=== PATIENT | female | born 1995 | race Hispanic/Latino ===

== ENCOUNTER 2018-02-21 22:50 | Emergency (ER) | payer OTHER ==
[2018-02-21] MEDS ORDERED: ONDANSETRON ODT 4 MG TAB ONE (23:44)
[2018-02-21] MEDS ORDERED: IBUPROFEN 400 MG TABLET ONE (23:44)
[2018-02-22] LABS: APPEARANCE,URINE Cloudy (CLEAR); BILIRUBIN,URINE Negative (NEGATIVE); COLOR,URINE Yellow (YELLOW); GLUCOSE, URINE (UA) Negative (NEGATIVE); KETONES,URINE Negative (NEGATIVE); LEUKOCYTE ESTERASE ,URINE Small (NEGATIVE); NITRATE,URINE Negative (NEGATIVE); OCCULT BLOOD,URINE Small (NEGATIVE); PROTEIN,URINE Negative (NEGATIVE)
[2018-02-22 00:01] LABS: HCG,QUAL RESULT NEGATIVE (NEGATIVE)
[2018-02-22 00:11] LABS: BACTERIA,URINE Few /HPF (None Seen); RBC,URINE 0-1 /HPF (0-1)
[2018-02-22 00:12] LABS: CALCIUM OXALATE CRYSTALS,UR Moderate /LPF (None Seen); MUCUS,URINE Few LPF (None Seen)
== END 2018-02-22 00:13 | disposition home or self-care (01) ==
LOC: EDH 22:50
DX: R30.0 Dysuria (principal)
CPT/HCPCS: 81001; 81025

== ENCOUNTER 2018-05-23 16:53 | Emergency (ER) | payer SELFPAY | END 2018-05-23 17:41 | disposition home or self-care (01) | LOC: EDH 16:53 | DX: H66.91 Otitis media, unspecified, right ear (principal) ==

== ENCOUNTER 2019-06-28 02:47 | Emergency (ER) | payer OTHER ==
[2019-06-28] MEDS ORDERED: MORPHINE SULFATE 4 MG/1ML SYG ONE (03:37)
[2019-06-28] MEDS ORDERED: ONDANSETRON HCL 4 MG/2 ML VIAL ONE (03:37)
[2019-06-28] MEDS ORDERED: SODIUM CHLORIDE 0.9% 1000ML 1,000 ML IV ONE (03:38)
[2019-06-28 03:43] LABS: BASOPHILS % (AUTO) 0.6 % (0.0-5.0); EOSINOPHILS % (AUTO) 3.4 % (0.0-8.0); HEMATOCRIT 35.6 % (36-48); LYMPHOCYTES % (AUTO) 27.4 % (21.0-51.0); MEAN CORPUSCULAR HGB CONC 32.9 g/dL (32.0-36.0); MEAN CORPUSCULAR VOLUME 85.2 fL (79-99); MONOCYTES % (AUTO) 8.9 % (3.0-13.0); NEUTROPHILS % (AUTO) 59.4 % (40.0-77.0); PLATELET COUNT (AUTO) 350 K/uL (130-400); RED BLOOD CELL COUNT(AUTO) 4.18 MIL/uL (4.00-5.50); RED CELL DISTRIBUTION WIDTH 13.2 % (11.0-15.5); WHITE BLOOD COUNT (AUTO) 9.4 K/uL (4.8-10.8)
[2019-06-28 03:45] LABS: APPEARANCE,URINE Clear (CLEAR); BILIRUBIN,URINE Negative (NEGATIVE); COLOR,URINE Yellow (YELLOW); GLUCOSE, URINE (UA) Negative (NEGATIVE); KETONES,URINE Negative (NEGATIVE); LEUKOCYTE ESTERASE ,URINE Trace (NEGATIVE); NITRATE,URINE Negative (NEGATIVE); OCCULT BLOOD,URINE Moderate (NEGATIVE); PROTEIN,URINE Negative (NEGATIVE); UROBILINOGEN,URINE 0.2 mg/dL (0.2-1.0)
[2019-06-28 03:50] LABS: HCG,QUAL RESULT NEGATIVE (NEGATIVE)
[2019-06-28 03:53] LABS: CREATININE 0.7 mg/dL (0.5-1.5); POTASSIUM 3.7 mmol/L (3.5-5.1)
[2019-06-28 03:57] LABS: ALBUMIN 3.6 g/dL (3.5-5.0); BILIRUBIN,TOTAL 0.2 mg/dL (0.2-1.0); TOTAL PROTEIN, SERUM 7.9 g/dL (6.0-8.3)
[2019-06-28 04:00] LABS: BACTERIA,URINE Few /HPF (None Seen); SQUAMOUS EPITHELIAL CELL,UR Rare /HPF (0-2); YEAST,URINE BUDDING Few /HPF (None Seen)
== END 2019-06-28 04:45 | disposition home or self-care (01) ==
LOC: EDH 02:47
DX: K80.80 Other cholelithiasis without obstruction (principal)
CPT/HCPCS: 36415; 76705; 80053; 81001; 81025; 82550; 83690; 84484; 85025; 93005; 99285; J2270; J2405; J7030

== ENCOUNTER 2019-08-22 00:10 | Emergency (ER) | payer OTHER ==
[2019-08-22 01:06] LABS: BASOPHILS % (AUTO) 0.5 % (0.0-5.0); EOSINOPHILS % (AUTO) 3.9 % (0.0-8.0); HEMATOCRIT 39.9 % (36-48); LYMPHOCYTES % (AUTO) 30.5 % (21.0-51.0); MEAN CORPUSCULAR HEMOGLOBIN 27.5 pg (27.0-33.0); MEAN CORPUSCULAR HGB CONC 32.1 g/dL (32.0-36.0); MEAN CORPUSCULAR VOLUME 85.6 fL (79-99); MONOCYTES % (AUTO) 7.5 % (3.0-13.0); NEUTROPHILS % (AUTO) 57.4 % (40.0-77.0); PLATELET COUNT (AUTO) 385 K/uL (130-400); RED BLOOD CELL COUNT(AUTO) 4.66 MIL/uL (4.00-5.50); RED CELL DISTRIBUTION WIDTH 13.3 % (11.0-15.5); WHITE BLOOD COUNT (AUTO) 11.7 K/uL (4.8-10.8)
[2019-08-22 01:08] LABS: APPEARANCE,URINE Turbid (CLEAR); BILIRUBIN,URINE Negative (NEGATIVE); COLOR,URINE Yellow (YELLOW); GLUCOSE, URINE (UA) Negative (NEGATIVE); KETONES,URINE Negative (NEGATIVE); LEUKOCYTE ESTERASE ,URINE Large (NEGATIVE); NITRATE,URINE Negative (NEGATIVE); OCCULT BLOOD,URINE Moderate (NEGATIVE); PROTEIN,URINE Trace mg/dL (NEGATIVE); UROBILINOGEN,URINE 0.2 mg/dL (0.2-1.0)
[2019-08-22 01:27] LABS: ALBUMIN 4.2 g/dL (3.5-5.0); BILIRUBIN,TOTAL 0.2 mg/dL (0.2-1.0); CREATININE 0.7 mg/dL (0.5-1.5); HCG,QUAL RESULT NEGATIVE (NEGATIVE); POTASSIUM 3.4 mmol/L (3.5-5.1); TOTAL PROTEIN, SERUM 8.9 g/dL (6.0-8.3)
[2019-08-22 01:56] LABS: BACTERIA,URINE Moderate /HPF (None Seen); SQUAMOUS EPITHELIAL CELL,UR Rare /HPF (0-2); WBC,URINE 26-50 /HPF (0-1)
[2019-08-22] MEDS ORDERED: CEPHALEXIN 500 MG CAPSULE ONE (02:13)
== END 2019-08-22 02:17 | disposition home or self-care (01) ==
LOC: EDH 00:10
DX: K80.20 Calculus of gallbladder without cholecystitis without obstruction (principal)
CPT/HCPCS: 36415; 80053; 81001; 81025; 83690; 84484; 85025; 93005

== ENCOUNTER → 2020-10-07 | Emergency (ER) | payer OTHER | LOC: EDH 19:09 | DX: M79.10 Myalgia, unspecified site (principal); Z53.21 Procedure and treatment not carried out due to patient leaving prior to being seen by health care provider ==

== ENCOUNTER 2024-05-05 16:01 | Emergency (ER) | payer SELFPAY ==
[~2024-05-05] VITALS: Ht 152.4 cm; Wt 81.6 kg
--- NOTE | 2024-05-05 17:04 | ERN ---
ED Note History of Present Illness Stated Complaint: VAGINAL DISCOMFORT Chief Complaint: Other Problems Time Seen by MD: 16:50 Dictation: PATIENT STATES SHE WAS SHAVING HER PERINEAL AREA LAST WEEK WHEN SHE NICKED HER SKIN. SHE SAID IT HURT AND IT FELT LIKE SHE WAS BURNING. SHE SAID SHE DID NOT GO SEE YOUR PRIMARY CARE DOCTOR IN TODAY IT FEELS WORSE NO FEVER NO CHILLS. SHE HAS NOT TAKEN ANYTHING PRIOR TO ARRIVAL FOR PAIN AND GOES TO [facility] Allergies: Coded Allergies: No Known Drug Allergies (Unverified Allergy, Unknown, 10/26/18) Past Medical History Past Medical History: No Pertinent History Surgical History: None History: Not Applicable RN Note Reviewed/Agreed w/PFSH: Yes Review of System Dictation CONSTITUTIONAL: NEGATIVE EXCEPT FOR HPI HEAD/FACE: NEGATIVE EXCEPT FOR HPI EENT: NEGATIVE EXCEPT FOR HPI RESPIRATORY: NEGATIVE EXCEPT FOR HPI GASTROINTESTINAL/ABDOMINAL: NEGATIVE EXCEPT FOR HPI GENITOURINARY: NEGATIVE EXCEPT FOR HPI MUSCULOSKELETAL: NEGATIVE EXCEPT FOR HPI INTEGUMENTARY: NEGATIVE EXCEPT FOR HPI SHAVING RASH PERINEAL NEUROLOGICAL/PSYCH: NEGATIVE EXCEPT FOR HPI HEMATOLOGIC/LYMPHATIC: NEGATIVE EXCEPT FOR HPI ALL SYSTEMS NEGATIVE, EXCEPT NOTED ABOVE. 13 POINT REVIEW OF SYSTEMS ASSESSED AND ALL NEGATIVE EXCEPT FOR ABOVE. Initial Vital Sign VS Vital Signs Date Time Temp Pulse Resp B/P (MAP) Pulse Ox O2 Delivery O2 Flow Rate FiO2 05/05/24 16:50 98.6 75 18 138/76 98 Physical Exam Dictation VITAL SIGNS REVIEWED DG EUGENE IN ROOM WITH THE EXAM GENERAL APPEARANCE: ALERT, ORIENTED X 3, MILD ACUTE DISTRESS, WELL DEVELOPED, NOURISHED. HEAD AND FACE: NON-TRAUMATIC. EYES: PERRL, PINK CONJUNCTIVAS, EYELID NO TRAUMA, ANTERIOR CHAMBER WITH ARCUS SENILIS. EARS: PINNAS INTACT AND NO SIGNS OF TRAUMA OR ERYTHEMA EAR CANALS CLEAR AND NO DISCHARGE TM NO ERYTHEMA NOSE: NO DISCHARGE, NO BLEEDING. OROPHARYNX: MOUTH NORMAL, TONGUE PINK, PHARYNX CLEAR,NO ERYTHEMA, TONSILS NO EXUDATES, NO ABSCESSES NOTED, MUCOUS MEMBRANE MOIST NECK: SUPPLE, NON-TENDER, NO THYROMEGALY, NO MASSES, NO JVD, NO BRUITS BREAST:DEFERRED CHEST:NO TENDERNESS, NO CREPITUS, NO PARADOXICAL MOVEMENT, NO RETRACTIONS LUNGS:CLEAR, WELL-VENTILATED, SYMMETRIC, NO RALES, NO WHEEZING, NO RHONCHI, NO STRIDOR, GOOD BREATH SOUNDS BILATERALLY HEART: REGULAR RATE, REGULAR RHYTHM, NO MURMUR, NO GALLOPS VASCULAR: NO PERIPHERAL EDEMA, ABDOMEN: SOFT, POSITIVE BOWEL SOUNDS, NONDISTENDED, NO GUARDING, NONTENDER, NO REBOUND, NO MASSES NO HEPATOMEGALY, NO SPLENOMEGALY, NO GUSTAFSON'S SIGN, NO HERNIAS. RECTAL: DEFERRED GENITAL PATIENT HAS SMALL FLAT MACULAR LESIONS TO HER INNER LABIA BILATERALLY NONTENDER TO PALPATION WHITE DISCHARGE. NEUROLOGICAL: NORMAL SPEECH, MOTOR FUNCTION INTACT, SENSORY FUNCTION INTACT MUSCULOSKELETAL: NECK NONTENDER, FULL RANGE OF MOTION, BACK NONTENDER, FULL RANGE OF MOTION, EXTREMITIES: NONTENDER, FULL RANGE OF MOTION SKIN: COLOR PINK, DRY, NO TURGOR, NO RASH, NO LACERATIONS, NO ABRASIONS, NO CONTUSIONS. LYMPHATIC: DEFERRED Results (Laboratory/Radiology) Labs Reviewed?: Yes ED Course ED Course Orders Procedure Category Date Status Time Herpes Simplex Virus LAB 05/05/24 Verified I/Ii-Pcr 18:56 Vital Signs Date Time Temp Pulse Resp B/P (MAP) Pulse Ox O2 Delivery O2 Flow Rate FiO2 05/05/24 16:50 98.6 75 18 138/76 98 ONE [place]OUS[place]INE [place]UNDRED, PATIENT WILL BE DISCHARGED HOME WITH POSSIBLE HERPES SIMPLEX VIRUS AND CANDIDIASIS. SHE STATES SHE HAD BEEN SEEN AT URGENT CARE LAST NIGHT WAS PRESCRIBED MONISTAT AND ACYCLOVIR THAT SHE DID NOT START, CAME TO THE EMERGENCY ROOM FOR 2ND OPINION. I TOLD HER I WOULD DRAW HSV SEROLOGY AND HAVE THEM SENT OUT FOR FOLLOW UP NEXT WEEK AND TO HAVE HER START THE MEDICATIONS AND TO FOLLOW UP THE PRACTICE NO SEX UNTIL CLEARED. Medical Decision Making MDM MEDICAL DISCHARGE MAKING BASED ON PHYSICAL EXAMINATION AND HSV SEROLOGY DRAWN. PATIENT ENCOURAGED TO TAKE ACYCLOVIR AND MONISTAT FROM HER URGENT CARE VISIT LAST NIGHT. TOLD TO FOLLOW UP EITHER OF THE HER PRIMARY CARE DOCTOR AT [facility] OR [facility] IN THE NEXT 2-3 DAYS. ALSO NO SEX UNTIL CLEARED BY HER DOCTOR DX & DISP Disposition: Discharge Departure Impression: Primary Impression: Possible exposure to STI Additional Impression: Vaginal candidiasis Condition: Stable Additional Instructions: FOLLOW-UP WITH PRIMARY CARE PROVIDER IN 1 TO 2 DAYS. TAKE MEDICATIONS DIRECTED HERE IN THE EMERGENCY ROOM. OKAY TO CONTINUE HOME MEDICATIONS UNLESS OTHERWISE DISCUSSED DURING YOUR VISIT IN THE EMERGENCY ROOM TODAY. RETURN TO YOUR NEAREST EMERGENCY ROOM IF SYMPTOMS WORSEN OR IF THERE IS NO IMPROVEMENT. CALL 911 IF YOU NEED IMMEDIATE ASSISTANCE. TAKE TYLENOL OR MOTRIN [id number] NEEDED AND IF NO CONTRAINDICATIONS ARE PRESENT. INCREASE ORAL HYDRATION. A WOUND CULTURE OR URINE CULTURE WAS ORDERED HERE IN THE EM ERGENCY ROOM DEPARTMENT PLEASE FOLLOW-UP WITH PRIMARY CARE PROVIDER AND ADVISE THEM TO GET REPEAT PORTS FROM OUR FACILITY. IF YOU HAD ANY AARON WRAP/SPLINTS THAT WERE APPLIED HERE, PLEASE DO NOT REMOVE THEM UNTIL YOU SEE YOUR PRIMARY CARE OR SPECIALTY. BEGIN ACYCLOVIR AND MONISTAT FROM YOUR URGENT CARE VISIT LAST NIGHT. FOLLOW UP WITH YOUR DOCTOR AT [facility] OR SUGGEST CALLING [facility] IN [place] FOR FOLLOW UP. SEE YELLOW PAGES FOR TELEPHONE NUMBER. Referrals: NONE (PCP) Time of Disposition: 19:00 I have reviewed the case, and I agree with, Diagnosis and Plan VERONIKA MERCHANT NP May 05, 2024 17:03
[2024-05-05 19:20] VITALS: BP 135/71; PULSE 68; RESP 18; TEMP 98.6; O2SAT 98
== END 2024-05-05 19:41 | disposition home or self-care (01) ==
LOC: EDH 16:01
DX: B37.31 Acute candidiasis of vulva and vagina (principal)
CPT/HCPCS: 36415; 87529; 99283